=== PATIENT | female | born 1950 | race Caucasian/White ===

== ENCOUNTER 2017-09-24 16:00 | Inpatient (IN) | payer MEDICARE ==
[2017-10-02] MEDS ORDERED: Vancomycin HCl 1.5 GM in Sodium Chloride 0.9% 250 ML 300 ML IVPB ONE (07:45)
[2017-10-02] MEDS ORDERED: Midazolam HCl 2 mg/2 ml Vial ONE (07:50)
[2017-10-02] MEDS ORDERED: Ropivacaine 0.5% HCl/PF (150 MG/30 ML VIAL) ONE (07:50)
[2017-10-02] MEDS ORDERED: Fentanyl 100 MCG/2 ML VIAL ONE (07:50)
[2017-10-02] MEDS ORDERED: CEFAZOLIN/Water 2 GM/20 ML SYRINGE ONE (08:04)
[2017-10-02] MEDS ORDERED: Scopolamine 1.5 mg/72 hour Patch ONE (08:04)
[2017-10-02] MEDS ORDERED: Ondansetron HCl/PF 4 MG/2 ML Vial IVP PRN ×2 (08:55→12:10)
[2017-10-02] MEDS ORDERED: Ketorolac Tromethamine 30 MG/ML VIAL IVP PRN (08:55)
[2017-10-02] MEDS ORDERED: Ropivacaine HCl/PF 250 ML in Premix Bag 1 BAG NERVE BLCK SCH (08:55)
[2017-10-02] MEDS ORDERED: Promethazine HCl 25 MG/ML VIAL IM PRN ×2 (08:55→12:10)
[2017-10-02] MEDS ORDERED: Zolpidem Tartrate 5 MG TAB PO PRN ×2 (08:55→11:08)
[2017-10-02] MEDS ORDERED: traMADol HCl 50 MG TAB PO PRN ×2 (08:55)
[2017-10-02] MEDS ORDERED: Ondansetron ODT 4 MG TAB PO PRN (11:08)
[2017-10-02] MEDS ORDERED: HYDROcodone/Acetaminophen 7.5/325 mg Tablet PO PRN ×2 (11:08)
[2017-10-02] MEDS ORDERED: PROVENTIL INHALER 6.7 G (200 INHALATIONS) INH PRN (11:10)
[2017-10-02] MEDS ORDERED: Lactated Ringer's 1,000 ML IV SCH (11:15)
[2017-10-02] MEDS ORDERED: Promethazine HCl 25 MG/ML VIAL ONE (11:17)
[2017-10-02] MEDS ORDERED: Promethazine HCl 25 MG/ML VIAL SLOW IVP PRN (12:10)
--- NOTE | 2017-10-02 12:44 | OP ---
PREOPERATIVE DIAGNOSES: Degenerative joint disease and biceps tendonitis, right shoulder. POSTOPERATIVE DIAGNOSES: Degenerative joint disease and biceps tendonitis, right shoulder. PROCEDURE PERFORMED: Right total shoulder arthroplasty using a [employer] size [address] em with a 43 head and a small glenoid polyethylene keel. SURGEON: Andrea Lagunas M.D. CLAIMS SUPPORT SPECIALIST: Toan Billy PA-C. BLOOD LOSS: 100. SPECIMEN: None. DRAINS: None. COMPLICATIONS: None. NARRATIVE REPORT: After appropriate consent was obtained, the patient was taken to the operating brayden m where general anesthesia was induced. She was placed in a beach chair position. Right arm was pre pped and draped in the usual sterile fashion. Oblique incision was made in the deltopectoral interva l. Cephalic vein was identified and preserved. Dissection was carried down to the conjoint tendon w hich was retracted medially. The subscapularis was taken down. The biceps tendon was in poor condit ion, it was taken down off the superior glenoid tubercle and tenodesed to the pectoralis tendon. Exc ess tendon was removed. The shoulder was then easily dislocated. I opened the humerus with a T hand le and then cut a 20 mm retroversion superior cut. The subscapularis had been previously tagged. I used a subscapularis to follow this down to the anterior glenoid and a Bankart retractor was placed a nteriorly, and drill was placed posteriorly. I drilled a center hole in the glenoid and reamed with a one-step reamer. Irrigation was performed. The base plate was deployed without difficulty. Screw s were inserted in the usual technique with good compression and fixation. Glenosphere was deployed without difficulty and the screw was tightened. Attention was turned back to the humerus which was o pened with a T handle, and after using the acetabular reamer, I then also used a metaphyseal reamer. The appropriate size stem was trialed and polyethylene was trialed until the implants were determine d as above. I did drill holes through the humerus, and a cottony Dacron suture was placed around the prosthesis through bone to facilitate repair of the subscapularis. Irrigation was performed. Perma nent implants were placed. Shoulder was reduced. The subscapularis was repaired back to bone using the cottony Dacron suture. Irrigation performed again. The deltopectoral interval was tacked shut w reggie 0 Vicryl, subcutaneous tissue was closed with 2-0 Vicryl, and skin was closed with megan, and s terile dressing was applied.
[2017-10-02] MEDS ORDERED: traMADol HCl 50 MG TAB PO SCH (13:00)
[2017-10-02] MEDS ORDERED: Dexamethasone 20 MG/5 ML VIAL ONE (13:32)
[2017-10-02] MEDS ORDERED: Ondansetron HCl/PF 4 MG/2 ML Vial ONE (13:32)
[2017-10-02] MEDS ORDERED: ePHEDrine/0.9% NaCl/PF SYRINGE 50 mg/10 ml ONE (13:32)
[2017-10-02] MEDS ORDERED: Lidocaine 1% PF 5 ML VIAL ONE (13:32)
[2017-10-02] MEDS ORDERED: PHENYLEPHRINE-NS 100 MCG/ML 10 ML SYRINGE ONE (13:32)
[2017-10-02] MEDS ORDERED: Glycopyrrolate 0.2 MG/ML 5 ML SYRINGE ONE (13:32)
[2017-10-02] MEDS ORDERED: PROPOFOL 200 MG/20 ML VIAL ONE (13:32)
[2017-10-02] MEDS ORDERED: Vecuronium 10 MG VIAL ONE (13:32)
[2017-10-02] MEDS ORDERED: CEFAZOLIN/Water 2 GM/20 ML SYRINGE SLOW IVP SCH (14:00)
[2017-10-02 16:02] VITALS: BMI 35.9
[2017-10-02] MEDS: HYDROcodone/Acetaminophen 5/325 mg Tablet PO PRN (20:12)
[2017-10-02] MEDS: Lisinopril 20 MG TAB PO SCH (20:13)
[2017-10-03] MEDS: HYDROcodone/Acetaminophen 5/325 mg Tablet PO PRN ×3 (00:31→08:45)
[2017-10-03] MEDS: Lisinopril 20 MG TAB PO SCH (08:44)
[2017-10-03] MEDS ORDERED: Aspirin 81 mg Enteric Coated Tablet PO SCH (09:00)
[2017-10-03] MEDS ORDERED: Enoxaparin Sodium 30 MG/0.3 ML SYRINGE SC SCH (09:00)
[2017-10-03] MEDS ORDERED: Allopurinol 100 MG TAB PO SCH (09:00)
[2017-10-03] MEDS ORDERED: Montelukast Sodium 10 mg Tablet PO SCH (09:00)
[2017-10-03] MEDS ORDERED: Ropivacaine 0.2% 550 ML 550 ML NERVE BLCK SCH (10:32)
[2017-10-03 12:06] VITALS: BP 149/87; TEMP 98.4
[2017-10-03] MEDS ORDERED: Silver Sulfadiazine 1% Cream 50 GM TUBE TP SCH (21:00)
--- NOTE | 2017-10-06 13:30 | DIS ---
DATE OF ADMISSION: 10/02/2017 DATE OF DISCHARGE: 10/03/2017 PREOPERATIVE DIAGNOSES: Degenerative joint disease and biceps tendonitis, right shoulder. DISCHARGE DIAGNOSES: Degenerative joint disease and biceps tendonitis, right shoulder. PROCEDURE: The patient underwent a right total shoulder arthroplasty using a Control4 size 4 Flex stem with a 43 head and a small glenoid polyethylene keel. HOSPITAL COURSE: Hospital stay was unremarkable. She was admitted to [place] [id number] where she worked with staff, physical therapy, and progressed quite well. By postoperative day #1, she was ready to discha [facility] home. DISCHARGE CONDITION: Good/stable. DISPOSITION: Home. FOLLOWUP: Follow up would be in 10-14 days, sooner if there are problems or concerns. DISCHARGE MEDICATIONS: Given with usage instructions. This is Toan Billy PA-C dictating for Dr. Andrea Lagunas.
== END 2017-10-03 12:56 | disposition home or self-care (01) | DRG 483 ==
LOC: SURG A 10-02 06:51 → SJJU 10-02 12:27
PROVIDERS: ADMIT Orthopaedic Surgery; ATTEND Orthopaedic Surgery
PROC: 0RRJ0JZ Replacement of Right Shoulder Joint with Synthetic Substitute, Open Approach (ICD-10-PCS; principal; 2017-10-02)
PROC: 3E0T3BZ Introduction of Anesthetic Agent into Peripheral Nerves and Plexi, Percutaneous Approach (ICD-10-PCS; 2017-10-02)
DX: M19.011 Primary osteoarthritis, right shoulder (principal); I10 Essential (primary) hypertension; M10.9 Gout, unspecified; M75.21 Bicipital tendinitis, right shoulder; Z98.84 Bariatric surgery status; Z79.818 Long term (current) use of other agents affecting estrogen receptors and estrogen levels; Z85.3 Personal history of malignant neoplasm of breast
CPT/HCPCS: A4306; C1713; G8978-GP-CL; G8979-GP-CK; G8987-GO-CJ; G8988-GO-CJ; G8989-GO-CJ; J1100; J1650; J2001; J2250; J2405; J2550; J2704; J2795; J3010; J3370; J7050

== ENCOUNTER 2017-09-24 16:15 | Outpatient (CLI) | payer MEDICARE ==
[2017-09-24 17:07] LABS: #Basophils 0.1 thou/uL (0.0-0.2); #Eosinphils 0.7 thou/uL (0.0-0.7); #Lymphocytes 2.9 thou/uL (1.20-3.40); #Monocytes 0.6 thou/uL (0.11-0.59); #Neutrophils 4.2 thou/uL (1.40-6.50); %Eosinophils 8.1 % (0.0-10.0); %Lymphocytes 34.2 % (21.0-51.0); %Monocytes 6.6 % (0.0-10.0); Hematocrit 39.3 % (36.0-47.0); Red Blood Cell (RBC) Count 4.44 mill/uL (4.20-5.40); White Blood Cell (WBC) Count 8.3 thou/uL (4.8-10.8)
[2017-09-24 17:22] LABS: Anion Gap 13 mmol/L (10-20); BUN (Urea Nitrogen) 14 mg/dL (9.8-20.1); Calc. Creatinine Clearance 0 mL/min (70-130); Calcium 10.2 mg/dL (7.8-10.44); Carbon Dioxide 25 mmol/L (23-31); Chloride 103 mmol/L (98-107); Estimated GFR-MDRD 54
--- NOTE | 2017-09-24 17:36 | RAD ---
CHEST TWO VIEWS: 09/24/17 HISTORY: Preop. Heart size is within normal limits. There are atherosclerotic changes of the aorta. The lungs are joanne ar of infiltrates. Postoperative changes of the thoracolumbar spine are noted. Left shoulder prosthes is is present. IMPRESSION: No active intrathoracic disease. POS: ADAM
--- NOTE | 2017-09-25 14:15 | EKG ---
Test Reason : Blood Pressure : / mmHG Vent. Rate : 085 BPM Atrial Rate : 085 BPM P-R Int : 148 ms QRS Dur : 074 ms QT Int : 380 ms P-R-T Axes : 025 -25 021 degrees QTc Int : 452 ms Poor data quality, interpretation may be adversely affected Normal sinus rhythm Low voltage QRS Cannot rule out Anterior infarct , age undetermined Abnormal ECG When compared with ECG of 09-AUG-2016 15:59, No significant change was found Confirmed by DR. Kiran CHANCE (3) on 09/25/2017 2:15:04 PM Referred By: YANIQUE Confirmed By:DR. Kiran CHANCE
== END 2017-09-24 16:16 | disposition home or self-care (01) ==
LOC: LABBT 16:15
PROVIDERS: ATTEND Orthopaedic Surgery
DX: Z01.818 Encounter for other preprocedural examination (principal); M19.011 Primary osteoarthritis, right shoulder
CPT/HCPCS: 71020; 80048; 85025; 93005; 93010

== ENCOUNTER 2018-07-23 06:55 | Day surgery (SDC) | payer MEDICARE ==
[2018-07-22 11:32] VITALS: BMI 33.0
[~2018-07-23 06:55] MED LIST: Prevnar 13-Val Conj/PF 0.5 ML SYRINGE IM ONE
[2018-07-23 07:53] VITALS: BP 125/97; TEMP 97.3
[2018-07-23] MEDS ORDERED: Iopamidol-M 300 61% 15 ML VIAL ONE (09:43)
--- NOTE | 2018-07-23 11:16 | RAD ---
LUMBAR AND THORACIC SPINE MYELOGRAM: 07/23/2018 HISTORY: Lumbar spondylosis and thoracic spine pain. FINDINGS: Informed consent was obtained prior to the procedure. Auto Transport Driver frontal and lateral radiographs of the t horacic spine are provided. There is postoperative hardware overlying the right upper quadrant, the right hilar region, and the left upper quadrant. There is extensive fusion hardware associated with the thoracolumbar spine, involving the T11, T12, L1, L2, L3, and L4 levels. Lateral thoracic and lumbar spine radiographs demonstrate no significant anterolisthesis or retrolist hesis. There is severe degenerative change at T10-T11, T11-T12, and T12-L1, with disk space narrowin g, degenerative endplate change, and anterior osteophyte formation. No acute fracture is seen. There are intervertebral disk devices at L3-L4, L4-L5, and L5-S1. The patient was placed on the fluoroscopic table, in the prone position, and the skin overlying the l ower lumbar spine was prepped and draped in the normal sterile fashion. The skin overlying the L3-L4 level was anesthetized with 1% buffered Lidocaine. With intermittent fluoroscopic guidance, a 22 ga uge spinal needle was advanced into the thecal sac, and removal of the stylet yielded clear cerebrosp inal fluid. Approximately 10 mL of iodinated contrast media was injected into the thecal sac, outlin ing the nerve roots of the cauda equina. The needle was removed. The patient tolerated the procedur e well. The patient's head was placed down to extend contrast media into the thoracic region as well . The patient was then transferred to the CT scanner for CT examination of the thoracic and lumbar s pine. IMPRESSION: 1. Multilevel degenerative and postoperative change of the thoracic and lumbar spine. 2. Successful thoracic and lumbar spine myelogram. CT myelogram to follow. POS: SABRINA
--- NOTE | 2018-07-23 11:36 | CT ---
CT MYELOGRAM OF THE LUMBAR SPINE: Date: 07-23-18 Comparison: None. History: Spondylosis, pain, prior surgery. Technique: Following the intrathecal administration of iodinated contrast media, serial axial CT imag ing at 2.5 mm intervals obtained through the lumbar spine. Coronal and sagittal reformatted imaging o btained. FINDINGS: There is extensive post-operative hardware which includes bilateral pedicle screws at T11, T12, L1, L 2, L3 and L4. There are associated bilateral vertically oriented interlocking rods. There is a disc d evice present at L3-4, L4-5, and L5-S1. There is mild anterolisthesis at the T10-11 level measuring approximately 3-4 mm, better assessed on the thoracic spine myelogram. The conus medullaris terminates at the L1 level. There are lucent tracks at the L5 and S1 levels suggesting hardware defects, status post removal on t he basis of removed bilateral pedicle screws. T12-L1: There is disc space narrowing and degenerative endplate change with mild disc bulge. There is bilateral facet hypertrophy as well. There is no significant central canal or neural foraminal steno sis. L1-2: Bilateral facet hypertrophy is present. There is disc space narrowing. There is mild bilateral neural foraminal stenosis. There is no significant central canal stenosis. L2-3: Mild bilateral facet hypertrophy. There is disc space narrowing and a vacuum disc present. Ther e is mild bilateral neural foraminal stenosis. No significant central canal stenosis. L3-4: Prominent bilateral facet hypertrophy, right greater than left. Mild left and moderate right ne ural foraminal stenosis. No significant central canal stenosis. L4-5: Prominent bilateral facet hypertrophy with moderate bilateral neural foraminal stenosis noted. No significant central canal stenosis. L5-S1: Bilateral facet hypertrophy with moderate left and severe right neural foraminal stenosis. No significant central canal stenosis. There is no evidence for acute fracture or dislocation. There is no worrisome lytic or blastic bone l esion noted. There is a small sliding type hiatal hernia. There is suture line associated with the st omach, incompletely imaged. There is scattered atherosclerotic calcification of the abdominal aorta and its branches. IMPRESSION: Multilevel post-operative and degenerative change within the lumbar spine as detailed above. POS: SABRINA
--- NOTE | 2018-07-23 11:57 | CT ---
CT MYELOGRAM THORACIC SPINE: 07/23/2018 HISTORY: Thoracic pain. COMPARISON: None. TECHNIQUE: Serial axial CT imaging obtained at 3.75 mm intervals, through the thoracic spine, following the intr athecal administration of contrast. Coronal and sagittal reformatted imaging obtained. FINDINGS: At the T10-T11 level, there is anterolisthesis, measuring approximately 3-4 mm. T1-T2: There is mild disk bulge in a small left paracentral disk protrusion. No significant central canal or neural foraminal stenosis. T2-T3: Mild bilateral facet hypertrophy and mild disk bulge with no significant central canal or paxton ral foraminal stenosis. T3-T4: Mild bilateral facet hypertrophy with mild bilateral neural foraminal stenosis. No significa nt central canal stenosis. T4-T5: Mild bilateral facet hypertrophy. Mild bilateral neural foraminal stenosis. No significant central canal stenosis. T5-T6: There is bilateral facet hypertrophy with mild/moderate bilateral neural foraminal stenosis. No central canal stenosis. T6-T7: Bilateral facet hypertrophy with moderate bilateral neural foraminal stenosis. No significan t central canal stenosis. T7-T8: Mild bilateral facet hypertrophy. No significant central canal or neural foraminal stenosis. T8-T9: There is a small left paracentral disk protrusion causing no significant central canal stenos is. There is facet hypertrophy on the left with mild to moderate left neural foraminal stenosis. T9-T10: There is disk space narrowing and vacuum disk formation. There is a disk protrusion in the left paracentral region, and there is posterior ligamentous hypertrophy in the left lateral recess re gion. There is associated significant left lateral recess stenosis, and there is moderate neural for aminal stenosis, left greater than right, with a mild degree of lateral central canal stenosis on the left. T10-T11: There is disk space narrowing, degenerative endplate change, and facet hypertrophic change. There is disk bulge and posterior ligamentous hypertrophy, leading to a focal area of mild/moderate central canal stenosis. There is moderate/severe bilateral neural foraminal stenosis. T11-T12: Bilateral facet hypertrophy. Disk space narrowing, disk desiccation, vacuum disk, and ante rior osteophyte formation. Facet hypertrophy leads to moderate right neural foraminal stenosis. No significant central canal or left neural foraminal stenosis. T12-L1: Bilateral facet hypertrophy. Disk space narrowing and mild disk bulge with no significant c entral canal or neural foraminal stenosis. IMPRESSION: Multilevel postoperative and degenerative change noted within the thoracic spine, as detailed above. The most significant degenerative change is present at the T10-T11 level and the T9-T10 level, as de scribed above. POS: SABRINA
== END 2018-07-23 10:10 | disposition home or self-care (01) ==
LOC: RAD 06:55
PROVIDERS: ATTEND Neurological Surgery
PROC: B01B1ZZ Fluoroscopy of Spinal Cord using Low Osmolar Contrast (ICD-10-PCS; principal; 2018-07-23)
DX: M47.816 Spondylosis without myelopathy or radiculopathy, lumbar region (principal); M51.34 Other intervertebral disc degeneration, thoracic region; M51.35 Other intervertebral disc degeneration, thoracolumbar region; M51.24 Other intervertebral disc displacement, thoracic region; M48.04 Spinal stenosis, thoracic region; M48.061 Spinal stenosis, lumbar region without neurogenic claudication; I10 Essential (primary) hypertension; J45.909 Unspecified asthma, uncomplicated; M10.9 Gout, unspecified; Z79.810 Long term (current) use of selective estrogen receptor modulators (SERMs); Z79.82 Long term (current) use of aspirin; Z79.899 Other long term (current) drug therapy; Z88.2 Allergy status to sulfonamides; Z88.8 Allergy status to other drugs, medicaments and biological substances; Z91.048 Other nonmedicinal substance allergy status; Z98.1 Arthrodesis status
CPT/HCPCS: 62305; 72129; 72132

== ENCOUNTER 2018-11-03 08:06 | Outpatient (CLI) | payer MEDICARE ==
--- NOTE | 2018-11-04 10:25 | NM ---
RADIOIODINE THYROID UPTAKE AND SCAN: Date: 11/03/18 HISTORY: Thyrotoxicosis without thyrotoxic storm. RADIOPHARMACEUTICAL: 260 microcuries Iodine-123 administered orally. FINDINGS: There is diffusely uptake in the thyroid gland. The 24 hour uptake measures 34% (10-30%). A focally i ncreased uptake is also seen in the left upper pole. IMPRESSION: 1. Increased 24 hour radioiodine uptake. 2. Graves' disease versus toxic nodule in the left upper pole. Thyroid ultrasound would be helpful. POS: SABRINA
== END 2018-11-03 08:07 | disposition home or self-care (01) ==
LOC: NM 08:06
PROVIDERS: ATTEND Internal Medicine
DX: E05.00 Thyrotoxicosis with diffuse goiter without thyrotoxic crisis or storm (principal)
CPT/HCPCS: 78014; A9516

== ENCOUNTER 2018-11-10 14:33 | Outpatient (CLI) | payer MEDICARE ==
--- NOTE | 2018-11-10 15:31 | ULT ---
THYROID ULTRASOUND: Comparison: None. History: Thyroid nodules. Technique: Multiplanar grayscale and color doppler images were obtained in a thyroid ultrasound. FINDINGS: There are mixed solid/cystic nodules in both lobes of the thyroid. The largest is seen on the left me asuring 2.6 x 2.6 x 2.0 cm in size. All of the nodules are well circumscribed and isoechoic compared to the thyroid parenchyma. These do not contain suspicious microcalcifications and are wider than calixto l. IMPRESSION: Multinodular thyroid. The thyroid nodules are all TIRADS category II lesions. Therefore, FNA is not r equired. POS: [facility]
== END 2018-11-10 14:34 | disposition home or self-care (01) ==
LOC: BICULT 14:33
PROVIDERS: ATTEND Internal Medicine
DX: E04.1 Nontoxic single thyroid nodule (principal); E04.2 Nontoxic multinodular goiter
CPT/HCPCS: 76536

== ENCOUNTER 2018-11-18 12:43 | Outpatient (CLI) | payer MEDICARE ==
--- NOTE | 2018-11-18 15:57 | NM ---
THYROID I 131 RADIOIODINE TREATMENT: Date: 11/18/18 HISTORY: Graves' disease. FINDINGS: After reviewing patient's prior procedures, discussion with the patient including the procedure, risk s, routine precautions, and alternate treatment possibilities. The patient voiced understanding. A capsule containing 14.35 mCi Iodine-131 was carefully administered PO. The patient had no difficult y with ingestion and was monitored for approximately 20 minutes after taking the pill. The patient will follow-up clinically with Dr. Lebron. IMPRESSION: Technically successful administration of Iodine-131 therapy for Graves disease. POS: ADAM
== END 2018-11-18 12:44 | disposition home or self-care (01) ==
LOC: NM 12:43
PROVIDERS: ATTEND Internal Medicine
DX: E05.00 Thyrotoxicosis with diffuse goiter without thyrotoxic crisis or storm (principal)
CPT/HCPCS: 79005; A9517 ×2

== ENCOUNTER 2018-12-22 16:25 | Outpatient (CLI) | payer MEDICARE ==
--- NOTE | 2018-12-22 17:08 | RAD ---
THORACIC SPINE FIVE VIEWS: 12/22/18 HISTORY: Back pain. COMPARISON: CT from 07/23/18. FINDINGS: Twelve thoracic type vertebrae. Operative fixation with posterior hardware at the lowest two thoracic levels and extending into the lumbar spine is again demonstrated. Compression of the T11 vertebral b anderson has increased slightly since the prior study. Minimal lucency surrounding the T11 screws. There i s 0.5 cm spondylolisthesis at the T10-11 level which does not change significantly upon flexion or ex tension. Acute kyphotic angulation at the T11 level. Irregularity of the T11 superior end plate is si milar to the recent CT. Osteophytosis throughout the vertebral bodies and facets. Cervicothoracic aundrea ction is intact. IMPRESSION: Slight interval progression of compression of the T11 vertebral body since the most recent CT exam. S pondylolisthesis at this level is stable without significant translation upon motion. Degenerative and postoperative changes, otherwise appears stable. POS: SABRINA
--- NOTE | 2018-12-22 17:21 | RAD ---
LUMBAR SPINE FOUR VIEWS: 12/22/18 HISTORY: Low back pain. COMPARISON: CT exam from 07/23/18. FINDINGS: Posterior operative fixation of the thoracolumbar spine is again demonstrated with pedicle screws as low as the L4 level. Metallic markers associated with interbody fusion material at the lowest three l evels remain in place with the L3-4 markers extending to the posterior confines of the disc space. Pr ominent rightward convexed rotatory scoliotic curvature on the frontal view. Prominent osteophytosis of the lowest facets. No abnormal translational motion upon flexion or extension. IMPRESSION: Extensive postoperative and degenerative changes of the lumbar spine appears stable compared to the m ost recent CT exam. POS: ADAM
== END 2018-12-22 16:26 | disposition home or self-care (01) ==
LOC: BICRAD 16:25
PROVIDERS: ATTEND Anesthesiology Pain Medicine
DX: M54.6 Pain in thoracic spine (principal); M47.816 Spondylosis without myelopathy or radiculopathy, lumbar region; M43.14 Spondylolisthesis, thoracic region; M47.814 Spondylosis without myelopathy or radiculopathy, thoracic region; Z98.890 Other specified postprocedural states
CPT/HCPCS: 72070; 72120

== ENCOUNTER 2019-05-20 08:18 | Outpatient (CLI) | payer MEDICARE ==
[2019-05-20 10:00] LABS: #Basophils 0.1 thou/uL (0.0-0.2); #Eosinphils 0.7 thou/uL (0.0-0.7); #Lymphocytes 2.7 thou/uL (1.20-3.40); #Monocytes 0.8 thou/uL (0.11-0.59); #Neutrophils 4.4 thou/uL (1.40-6.50); %Basophils 1.1 % (0.0-1.0); %Eosinophils 8.2 % (0.0-10.0); %Lymphocytes 30.9 % (21.0-51.0); %Monocytes 9.6 % (0.0-10.0); %Neutrophils 50.2 % (42.0-75.0); Mean Corpuscular HGB CONC 33.1 g/dL (32.0-36.0); Mean Corpuscular Hemoglobin 29.3 pg (27.0-31.0); Mean Corpuscular Volume 88.7 fL (78.0-98.0); Mean Platelet Volume 6.9 fL (7.4-10.4); Platelet Count 326 thou/uL (130-400); Red Blood Cell (RBC) Count 4.42 mill/uL (4.20-5.40); White Blood Cell (WBC) Count 8.7 thou/uL (4.8-10.8)
[2019-05-20 10:04] LABS: INR-International Normal Ratio 0.9; Prothrombin Time 12.6 SEC (12.0-14.7)
[2019-05-20 10:06] LABS: Bacteria/HPF None Seen HPF (None Seen); Bilirubin Negative (Negative); Blood, Urine Negative (Negative); Clarity Clear (Clear); Glucose, Urine (Dipstick) Normal (Negative); Leukocyte Negative Leu/uL (Negative); Nitrite Negative (Negative); Protein, Urine (Dipstick) Negative (Neg-Trace); RBC/HPF 0-3 HPF (0-3); Squamous Epithelial 0-3 HPF (0-3); Urobilinogen Normal mg/dL (Less than 2); WBC/HPF 0-3 HPF (0-3)
[2019-05-20 10:38] LABS: Anion Gap 12 mmol/L (10-20); BUN (Urea Nitrogen) 24 mg/dL (9.8-20.1); Calc. Creatinine Clearance 0 mL/min (70-130); Calcium 9.4 mg/dL (7.8-10.44); Carbon Dioxide 23 mmol/L (23-31); Chloride 102 mmol/L (98-107); Estimated GFR-MDRD 45; Glucose 71 mg/dL (80-115); Potassium 4.3 mmol/L (3.5-5.1); Sodium 133 mmol/L (136-145)
== END 2019-05-20 08:19 | disposition home or self-care (01) ==
LOC: LABBT 08:18 → EDSTATUS 08:30
PROVIDERS: ATTEND Orthopaedic Surgery
DX: Z01.818 Encounter for other preprocedural examination (principal); M17.11 Unilateral primary osteoarthritis, right knee
CPT/HCPCS: 80048; 81001; 85025; 85610; 87081; 87086; 93005; 93010

== ENCOUNTER 2019-05-24 06:55 | Day surgery (SDC) | payer MEDICARE ==
--- NOTE | 2019-05-19 15:42 | HP ---
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 She has had progressive degenerative arthritis and has become more symptomatic despite rest, restriction of activities, and anti-inflammatory medications, and previous cortisone injections. Pain is now interfering with day-to-day activities of walking, getting dressed, and sleeping. PAST HISTORY: Please see the old chart. The patient has had previous left total knee replacement seven years ago with good results. She has had bilateral total shoulder replacements, gastric bypass surgery, hysterectomy, and breast reconstruction following mastectomy for carcinoma without recurrence. She was recently diagnosed with Graves disease. CURRENT MEDICATIONS: Include: 1. Naproxen. 2. Lisinopril. 3. Singulair. 4. Tramadol. 5. Cardizem. 6. Protonix. 7. Low-dose aspirin. 8. Levothyroxine. 9. P.r.n. hydrocodone. ALLERGIES: SHE IS ALLERGIC TO TAPE WHICH CAUSES BLISTERS. SHE IS ALLERGIC TO DREA-DUR WHICH CAUSES VOMITING. SHE IS ALLERGIC TO BETADINE, WHICH CAUSES BLISTERS. SHE IS ALLERGIC TO LYRICA WHICH CAUSED WEIGHT GAIN AND DEPRESSION. SHE IS ALSO ALLERGIC TO SULFA, WHICH CAUSES HIVES AND NEOSPORIN WHICH CAUSES BLISTERS. PHYSICAL EXAMINATION: GENERAL: Reveals a healthy female. HEENT: Unremarkable. NECK: Supple. CHEST: Clear. HEART: Regular rate and rhythm. ABDOMEN: Soft, nontender. PELVIC: Deferred. RECTAL: Deferred. BREAST: Deferred. EXTREMITIES: Pertinent findings related to the right knee. There is 1+ effusion. There is no warmth or erythema. There is normal alignment. There is medial and lateral joint tenderness. Range of motion is 0 to 120 degrees. There is crepitus on range of motion. There is no instability. NEUROVASCULAR: Intact. Palpable distal pulses 1+. There is no pain with range of motion of the right hip. DIAGNOSTIC STUDIES: X-rays of the right hip reveal tricompartmental degenerative arthritis, most marked in patellofemoral joint with progression from previous x-rays. IMPRESSION: 1. Degenerative arthritis, right knee. 2. Status post left total knee replacement. 3. Status post bilateral total shoulder replacements. 4. History of breast cancer. 5. History of hypertension. 6. History of Graves disease. PLAN: Right total knee replacement. The nature of surgery, length of recovery, and potential complications such as infection, loss of motion, incomplete relief, delayed wound healing, neurovascular injury, thromboembolic phenomena, possible transfusion, need for revision have been discussed in detail. Job ID: [id number]
[2019-05-20 08:33] VITALS: BMI 34.0
[2019-05-24] MEDS ORDERED: Sodium Chloride 0.9% 100 ML ONE (07:28)
[2019-05-24] MEDS ORDERED: Tranexamic Acid 1,000 MG/10 ML VIAL ONE ×2 (07:28→11:39)
[2019-05-24] MEDS ORDERED: Vancomycin HCl 1.5 GM in Sodium Chloride 0.9% 250 ML 300 ML IVPB SCH ×2 (07:45→20:00)
[2019-05-24] MEDS ORDERED: Midazolam HCl 2 mg/2 ml Vial ONE (08:10)
[2019-05-24] MEDS ORDERED: Fentanyl 100 MCG/2 ML VIAL ONE ×4 (08:10→11:56)
[2019-05-24] MEDS ORDERED: Scopolamine 1.5 mg/72 hour Patch ONE (08:36)
[2019-05-24] MEDS ORDERED: Ropivacaine HCl/PF 250 ML in Premix Bag 1 BAG NERVE BLCK SCH (08:46)
[2019-05-24] MEDS ORDERED: Zolpidem Tartrate 5 MG TAB PO PRN ×2 (08:46→13:51)
[2019-05-24] MEDS ORDERED: traMADol HCl 50 MG TAB PO PRN ×3 (08:46→13:51)
[2019-05-24] MEDS ORDERED: Ondansetron PF 4 MG/2 ML Vial IVP PRN ×2 (08:46→13:51)
[2019-05-24] MEDS ORDERED: Promethazine HCl 25 MG/ML VIAL IM PRN ×2 (08:46→14:16)
[2019-05-24] MEDS ORDERED: Fentanyl 100 MCG/2 ML VIAL IV PRN (08:46)
[2019-05-24] MEDS ORDERED: HYDROcodone/Acetaminophen 5/325 mg Tablet PO PRN (08:46)
[2019-05-24] MEDS ORDERED: Bupivacaine/Epinephrine 0.25% 30 ML VIAL ONE (09:08)
[2019-05-24] MEDS ORDERED: Tranexamic Acid 1,000 MG in Sodium Chloride 0.9% 100 ML IVPB SCH ×2 (11:30→13:51)
[2019-05-24] MEDS ORDERED: HYDROmorphone 2 MG/ML VIAL ONE (11:38)
[2019-05-24] MEDS ORDERED: HYDROmorphone 0.5 MG/0.5 ML SYRINGE ONE (11:57)
--- NOTE | 2019-05-24 12:21 | RAD ---
RIGHT KNEE 2 VIEWS: Date: 05/24/19 HISTORY: Recent total knee postoperative change. FINDINGS/IMPRESSION: Recent total knee arthroplasty changes without periprosthetic fracture or dislocation. POS: OFF
[2019-05-24] MEDS ORDERED: Ropivacaine 0.2% HCl/PF (40 MG/20 ML VIAL) ONE (13:42)
[2019-05-24] MEDS ORDERED: Ropivacaine 0.5% HCl/PF (150 MG/30 ML VIAL) ONE (13:42)
[2019-05-24] MEDS ORDERED: Promethazine HCl 25 MG/ML VIAL SLOW IVP PRN ×2 (13:51→14:16)
[2019-05-24] MEDS ORDERED: Fentanyl 100 MCG/2 ML VIAL SLOW IVP PRN (13:51)
[2019-05-24] MEDS ORDERED: diphenhydrAMINE 25 MG CAP PO PRN (13:51)
[2019-05-24] MEDS ORDERED: Acetaminophen 325 MG TAB PO PRN (13:51)
[2019-05-24] MEDS ORDERED: HYDROcodone/Acetaminophen 10/325 mg Tablet PO PRN (13:51)
[2019-05-24] MEDS ORDERED: PROVENTIL INHALER 6.7 G (200 INHALATIONS) INH PRN (13:51)
[2019-05-24] MEDS: HYDROcodone/Acetaminophen 5/325 mg Tablet PO PRN ×2 (14:07→18:37)
[2019-05-24] MEDS ORDERED: Dexamethasone 20 MG/5 ML VIAL ONE (14:09)
[2019-05-24] MEDS: Ketorolac Tromethamine 30 MG/ML VIAL IVP PRN (14:09)
[2019-05-24] MEDS ORDERED: Ondansetron PF 4 MG/2 ML Vial ONE (14:09)
[2019-05-24] MEDS ORDERED: Metoclopramide HCl 10 MG/2 ML VIAL ONE (14:09)
[2019-05-24] MEDS ORDERED: ePHEDrine 50 MG/ML VIAL ONE (14:09)
[2019-05-24] MEDS ORDERED: PROPOFOL 200 MG/20 ML VIAL ONE (14:09)
[2019-05-24] MEDS ORDERED: Lidocaine 1% PF 5 ML VIAL ONE (14:09)
[2019-05-24] MEDS ORDERED: PHENYLEPHRINE-NS 100 MCG/ML 10 ML SYRINGE ONE (14:09)
[2019-05-24] MEDS ORDERED: Ondansetron HCl/PF 4 MG/2 ML Vial IVP PRN (14:16)
--- NOTE | 2019-05-24 14:37 | PDOC.HOSPP ---
- Subjective Encounter Date: 05/24/19 Encounter Time: 14:20 Subjective: no wheezing or sob right leg is tingling a bit, still mostly numb no pain - Objective Vital Signs & Weight: Weight Weight 180 lb ROS - Medication Medications: Active Medications Generic Name Dose Route Start Last Admin Trade Name Freq PRN Reason Stop Dose Admin Hydrocodone Bitart/Acetaminophen 2 tab 05/24/19 08:46 05/24/19 14:07 [place] 5/325 PO 2 tab Q4H PRN Administration For Moderate Pain 4-6 Ketorolac Tromethamine 15 mg 05/24/19 08:46 05/24/19 14:09 Toradol IVP 05/27/19 08:47 15 mg Q6H PRN Administration Moderate Pain (4-6) - Exam NAD, awake alert Eye: PERRL, anicteric sclera ENT: no oropharyngeal lesions, moist mucosa Neck: supple, no JVD Heart: RRR, no murmur Respiratory: no wheezes, no rales Gastrointestinal: soft, non-tender, normal bowel sounds Extremities: no cyanosis, no clubbing Neurological: CN's grossly intact, no focal deficits Psychiatric: normal affect, A&O x 3 Hosp A/P (1) Status post total knee replacement, right Code(s): Z96.651 - PRESENCE OF RIGHT ARTIFICIAL KNEE JOINT Status: Acute (2) HTN (hypertension) Code(s): I10 - ESSENTIAL (PRIMARY) HYPERTENSION Status: Chronic Qualifiers: Hypertension type: essential hypertension Qualified Code(s): I10 - Essential (primary) hypertension (3) GERD (gastroesophageal reflux disease) Code(s): K21.9 - GASTRO-ESOPHAGEAL REFLUX DISEASE WITHOUT ESOPHAGITIS Status: Chronic Qualifiers: Esophagitis presence: esophagitis presence not specified Qualified Code(s) : K21.9 - Gastro-esophageal reflux disease without esophagitis (4) Hypothyroidism Code(s): E03.9 - HYPOTHYROIDISM, UNSPECIFIED Status: Chronic Qualifiers: Hypothyroidism type: acquired Qualified Code(s): E03.9 - Hypothyroidism, unspecified (5) Gout Code(s): M10.9 - GOUT, UNSPECIFIED Status: Chronic Qualifiers: Gout site: unspecified site (6) H/O malignant neoplasm of breast Code(s): Z85.3 - PERSONAL HISTORY OF MALIGNANT NEOPLASM OF BREAST Status: Resolved (7) Obesity (BMI 30.0-34.9) Code(s): E66.9 - OBESITY, UNSPECIFIED Status: Chronic - Plan continue asp bid for dvt prophylaxis reduce lisinopril to 5mg bid, will escalate the dose as needed continue singulair, evista, cardizem CD 120mg daily (for suspected tachy arrhythmias, no afib per pt), protonix hemostable will f/u i.spirometry, alb nebs q8h
--- NOTE | 2019-05-24 16:26 | OP ---
DATE OF PROCEDURE: 05/24/2019 COPY READER: Shena Richardson PA-C ANESTHESIA: General plus adductor canal and sciatic nerve blocks. PREOPERATIVE DIAGNOSIS: Degenerative arthritis, right knee. POSTOPERATIVE DIAGNOSIS: Degenerative arthritis, right knee. PROCEDURE PERFORMED: Right total knee replacement with computer-assisted navigation with cemented [employer] components (#3 femoral component, #3 primary tibial baseplate with 9 mm CS plastic insert, and all-plastic A29 patellar component). DESCRIPTION OF PROCEDURE: After satisfactory anesthesia was induced in supine position, sequential compression device was placed on the nonoperative leg throughout the procedure. The right leg was then prepped and draped in routine sterile fashion. The right leg was elevated and exsanguinated with an Esmarch bandage and tourniquet inflated to 300 mmHg. A gently curved medial parapatellar incision was made, carried down through subcutaneous tissues and bleeding points were controlled with Bovie cautery. Medial parapatellar arthrotomy was performed. The patella was dislocated laterally and portions of the fat pad were excised for exposure. There was marked tricompartmental degenerative arthritis of the knee especially of the patellofemoral joint. The osteophytes and meniscal remnants were removed. Using the appropriate guides and the [employer] pinless navigation system, the distal femoral and proximal tibial articular surfaces were excised with oscillating saw to accept the trial components. It was felt #3 femoral component and #3 primary tibial base plate with 9 mm CS plastic insert gave appropriate size, fit, and stability. The patellar articular surface was excised to accept an all-plastic A29 patellar component. There was good range of motion and good patellar tracking. The trial components were removed. The knee was copiously irrigated with pulsatile lavage and the bony surfaces were thoroughly cleaned and dried. The permanent components were then cemented in a single stage using one package of cement premixed with 1 g of tobramycin powder. Excess cement was removed. There was again good fit and stability of the components. The knee was again copiously irrigated. The medial retinaculum and quadriceps mechanism was closed with interrupted #2 Vicryl and a running #2 Quill. The skin was infiltrated with 30 mL of 0.25% Marcaine with epinephrine. Subcutaneous tissues were closed with a running 0 Quill suture and the skin closed with running subcuticular 3-0 Monoderm and SurgiSeal skin adhesive. A sterile bulky compressive dressing was applied and the tourniquet deflated after 68 minutes. The foot promptly pinked up. A sequential compression device was placed on the operative leg and she was awakened, taken to the recovery room in stable condition. There were no apparent intraoperative complications. The estimated blood loss was less than 100 mL. Job ID: [id number]
[2019-05-24] MEDS: CEFAZOLIN 2 GM in Premix Bag 1 BAG IVPB SCH ×2 (16:27→18:23)
[2019-05-24] MEDS: Albuterol Sulfate 1.25 MG/3 ML NEB NEB SCH ×2 (16:28→23:11)
[2019-05-24] MEDS: Sodium Chloride 0.9% 1,000 ML IV SCH (18:31)
[2019-05-24] MEDS: Allopurinol 100 MG TAB PO SCH (20:11)
[2019-05-24] MEDS: Senokot S 8.6-50 MG TAB PO SCH (20:14)
[2019-05-24] MEDS: Lisinopril 5 MG TAB PO SCH (20:14)
[2019-05-24] MEDS: Aspirin 81 mg Enteric Coated Tablet PO SCH (20:23)
[2019-05-24] MEDS: Fluticasone Propionate Nasal Spray 16 gm Bottle NASAL SCH (20:30)
[2019-05-24] MEDS ORDERED: Lisinopril 20 MG TAB PO SCH (21:00)
[2019-05-24] MEDS ORDERED: CEFAZOLIN 2 GM in Premix Bag 1 BAG IVPB SCH (23:59)
[2019-05-25] MEDS: Sodium Chloride 0.9% 1,000 ML IV SCH ×3 (01:21→20:37)
[2019-05-25] MEDS: Levothyroxine Sodium 75 MCG TAB PO SCH (04:11)
[2019-05-25] MEDS: HYDROcodone/Acetaminophen 10/325 mg Tablet PO PRN ×3 (04:11→19:41)
[2019-05-25 05:04] LABS: Hemoglobin 10.7 g/dL (12.0-16.0); Mean Corpuscular HGB CONC 32.5 g/dL (32.0-36.0); Mean Corpuscular Hemoglobin 29.3 pg (27.0-31.0); Mean Platelet Volume 6.8 fL (7.4-10.4); Platelet Count 267 thou/uL (130-400); RBC Distribution Width 12.7 % (11.5-14.5); Red Blood Cell (RBC) Count 3.64 mill/uL (4.20-5.40); White Blood Cell (WBC) Count 14.8 thou/uL (4.8-10.8)
[2019-05-25] MEDS: Fentanyl 100 MCG/2 ML VIAL SLOW IVP PRN ×2 (06:42→20:41)
[2019-05-25] MEDS: Albuterol Sulfate 1.25 MG/3 ML NEB NEB SCH ×3 (07:33→21:41)
[2019-05-25] MEDS: Montelukast Sodium 10 mg Tablet PO SCH (08:18)
[2019-05-25] MEDS: Aspirin 81 mg Enteric Coated Tablet PO SCH ×2 (08:18→20:07)
[2019-05-25] MEDS: Lisinopril 5 MG TAB PO SCH ×2 (08:20→20:08)
[2019-05-25] MEDS: Senokot S 8.6-50 MG TAB PO SCH ×2 (08:20→20:07)
[2019-05-25] MEDS: Multivitamin W/ Minerals 1 TAB PO SCH (08:21)
[2019-05-25] MEDS: Ketorolac Tromethamine 30 MG/ML VIAL IVP PRN ×2 (08:36→19:42)
[2019-05-25] MEDS: Fluticasone Propionate Nasal Spray 16 gm Bottle NASAL SCH ×2 (10:20→19:48)
--- NOTE | 2019-05-25 14:30 | PRG ---
DATE OF SERVICE: 05/25/2019 SUBJECTIVE: Adriana is a 68-year-old female postop day 1 from a right total knee arthroplasty by Dr. Kaufman. She is doing fairly well. She has no complaints of pain, has been very well controlled. She ambulated approximately 300 feet. OBJECTIVE: VITAL SIGNS: Temperature 98.6, pulse 78, respiratory rate 16, and blood pressure is 126/71. GENERAL: She is alert and oriented to person, place, time, and situation. EXTREMITIES: No strikethrough was noted at the knee, no malrotation or deformity, and she is neurovascularly intact in the right lower extremity. IMPRESSION: 1. A 68-year-old female postop day 1 right total knee arthroplasty. 2. Asymptomatic anemia. PLAN: Continue current care. Probable discharge tomorrow to home. Job ID: [id number]
[2019-05-25] MEDS: Allopurinol 100 MG TAB PO SCH (20:07)
--- NOTE | 2019-05-25 23:41 | PDOC.HOSPP ---
- Subjective Subjective: Doing well. No complaints. No significant pain. - Objective Vital Signs & Weight: Vital Signs (12 hours) Temp Pulse Resp BP BP Pulse Ox 05/25/19 22:24 96 05/25/19 21:41 83 12 96 05/25/19 20:08 83 151/83 H 05/25/19 20:03 99.5 F 84 16 151/83 H 97 05/25/19 16:15 98.4 F 71 16 136/68 98 05/25/19 14:30 86 16 97 05/25/19 12:23 98.6 F 79 16 126/71 94 L Weight Admit Weight 180 lb Weight 180 lb I&O: 05/24/19 05/25/19 05/26/19 06:59 06:59 06:59 Intake Total 2255 1120 Output Total 1550 Balance 705 1120 Result Diagrams: 05/25/19 04:31 Hospitalist ROS - Medication Medications: Active Medications Generic Name Dose Route Start Last Admin Trade Name Freq PRN Reason Stop Dose Admin Hydrocodone Bitart/Acetaminophen 2 tab 05/24/19 08:46 05/24/19 18:37 [place] 5/325 PO 2 tab Q4H PRN Administration For Moderate Pain 4-6 Hydrocodone Bitart/Acetaminophen 1 tab 05/24/19 13:51 05/25/19 08:35 [place] 10/325 PO 1 tab Q4H PRN Administration Moderate Pain (4-6) Hydrocodone Bitart/Acetaminophen 2 tab 05/24/19 13:51 05/25/19 19:41 [place] 10/325 PO 2 tab Q4H PRN Administration Severe Pain (7-10) Albuterol Sulfate 1.25 mg 05/24/19 15:00 05/25/19 21:41 Albuterol Sulfate NEB 1.25 mg [id number] ROWAN Administration Allopurinol 100 mg 05/24/19 21:00 05/25/19 20:07 Zyloprim PO 100 mg HS ROWAN Administration Aspirin 81 mg 05/24/19 21:00 05/25/19 20:07 Ecotrin PO 81 mg BID ROWAN Administration Diltiazem HCl 120 mg 05/24/19 21:00 05/25/19 20:08 Cardizem Cd PO 120 mg HS ROWAN Administration Fentanyl 50 mcg 05/24/19 08:46 05/25/19 17:56 Sublimaze IV 50 mcg Q1H PRN Administration BREAKTHRU PAIN Fentanyl 100 mcg 05/24/19 13:51 05/25/19 20:41 Sublimaze SLOW IVP 100 mcg Q1H PRN Administration Severe Pain (7-10) Fluticasone Propionate 0 gm 05/24/19 21:00 05/25/19 19:48 Flonase Nasal [place] NASAL 2 sprays BID ROWAN Administration Ropivacaine 250 ml/ Device 250 mls @ 10 mls/hr 05/24/19 08:46 05/25/19 13:26 NERVE BLCK 250 mls INF ROWAN Administration Sodium Chloride 1,000 mls @ 100 mls/hr 05/24/19 13:51 05/25/19 20:37 Normal Saline 0.9% IV Not Given .Q10H ROWAN Iron/Minerals/Multivitamins 1 tab 05/25/19 09:00 05/25/19 08:21 Theragran M PO 1 tab DAILY ROWAN Administration Ketorolac Tromethamine 15 mg 05/24/19 08:46 05/25/19 19:42 Toradol IVP 05/27/19 08:47 15 mg Q6H PRN Administration Moderate Pain (4-6) Levothyroxine Sodium 75 mcg 05/25/19 06:00 05/25/19 04:11 Synthroid PO 75 mcg 0600 ROWAN Administration Montelukast Sodium 10 mg 05/25/19 09:00 05/25/19 08:18 Singulair PO 10 mg QAM ROWAN Administration Pantoprazole Sodium 40 mg 05/24/19 21:00 05/25/19 20:08 Protonix PO 40 mg BID ROWAN Administration Raloxifene HCl 60 mg 05/25/19 09:00 05/25/19 08:19 Evista PO 60 mg QAM ROWAN Administration Senna/Docusate Sodium 2 tab 05/24/19 21:00 05/25/19 20:07 Senokot S PO 2 tab BID ROWAN Administration Sodium Chloride 10 ml 05/24/19 13:51 05/25/19 08:37 Flush - Normal Saline IVF 10 ml PRN PRN Administration Saline Flush - Exam General Appearance: NAD, awake alert Heart: RRR, no murmur, no gallops, no rubs, normal peripheral pulses Respiratory: CTAB, no wheezes, no rales, no ronchi, normal chest expansion, no tachypnea, normal percussion Gastrointestinal: soft, non-tender, non-distended, normal bowel sounds, no palpable masses, no hepatomegaly, no splenomegaly, no bruit Extremities: no cyanosis, no clubbing, no edema Extremeties - other findings: Post op dressing RLE Skin: normal turgor Neurological: CN's grossly intact Musculoskeletal: normal tone Psychiatric: normal affect, normal behavior, A&O x 3 Hosp A/P (1) Status post total knee replacement, right Code(s): Z96.651 - PRESENCE OF RIGHT ARTIFICIAL KNEE JOINT Status: Acute (2) GERD (gastroesophageal reflux disease) Code(s): K21.9 - GASTRO-ESOPHAGEAL REFLUX DISEASE WITHOUT ESOPHAGITIS Status: Chronic Qualifiers: Esophagitis presence: esophagitis presence not specified Qualified Code(s) : K21.9 - Gastro-esophageal reflux disease without esophagitis (3) Gout Code(s): M10.9 - GOUT, UNSPECIFIED Status: Chronic Qualifiers: Gout site: unspecified site (4) HTN (hypertension) Code(s): I10 - ESSENTIAL (PRIMARY) HYPERTENSION Status: Chronic Qualifiers: Hypertension type: essential hypertension Qualified Code(s): I10 - Essential (primary) hypertension (5) Hypothyroidism Code(s): E03.9 - HYPOTHYROIDISM, UNSPECIFIED Status: Chronic Qualifiers: Hypothyroidism type: acquired Qualified Code(s): E03.9 - Hypothyroidism, unspecified (6) Obesity (BMI 30.0-34.9) Code(s): E66.9 - OBESITY, UNSPECIFIED Status: Chronic (7) H/O malignant neoplasm of breast Code(s): Z85.3 - PERSONAL HISTORY OF MALIGNANT NEOPLASM OF BREAST Status: Resolved - Plan Post op care per ortho. Increase the ACEI to 10 mg bid. Continue to titrate upward to home dose as tolerated.
[2019-05-26] MEDS: HYDROcodone/Acetaminophen 10/325 mg Tablet PO PRN ×3 (03:58→12:10)
[2019-05-26] MEDS: Ketorolac Tromethamine 30 MG/ML VIAL IVP PRN ×2 (04:49→12:12)
[2019-05-26] MEDS: Levothyroxine Sodium 75 MCG TAB PO SCH (04:57)
[2019-05-26] MEDS: Albuterol Sulfate 1.25 MG/3 ML NEB NEB SCH (07:33)
[2019-05-26] MEDS: Montelukast Sodium 10 mg Tablet PO SCH (08:21)
[2019-05-26] MEDS: Aspirin 81 mg Enteric Coated Tablet PO SCH (08:21)
[2019-05-26] MEDS: Senokot S 8.6-50 MG TAB PO SCH (08:21)
[2019-05-26] MEDS: Sodium Chloride 0.9% 1,000 ML IV SCH (08:21)
[2019-05-26] MEDS: Fluticasone Propionate Nasal Spray 16 gm Bottle NASAL SCH (08:22)
[2019-05-26] MEDS: Multivitamin W/ Minerals 1 TAB PO SCH (08:22)
[2019-05-26] MEDS ORDERED: Lisinopril 10 MG TAB PO SCH (09:00)
[2019-05-26 11:50] VITALS: BP 149/82; TEMP 98.8
--- NOTE | 2019-05-27 12:55 | DIS ---
DATE OF ADMISSION: 05/24/2019 DATE OF DISCHARGE: 05/26/2019 This is Shena Richardson PA-C dictating a report for Ashok Kaufman MD. CONSULTANTS: Include [facility] well [facility]. PREOPERATIVE DIAGNOSIS: Degenerative arthritis, right knee. POSTOPERATIVE DIAGNOSIS: Degenerative arthritis, right knee. PROCEDURE PERFORMED: Right total knee replacement with computer-assisted navigation. BRIEF HOSPITAL COURSE: This is a 68-year-old female, who was indicated for the above-mentioned procedure. She failed nonoperative management. Postoperatively, she was admitted to [place] [address] [facility], where she worked with physical and occupational therapist and underwent Joint-U protocol. She was also seen by [facility] for postoperative pain management. She completed postoperative IV antibiotics. Her hospital course was uncomplicated. On postoperative day #2, she was discharged home with home health physical therapy. DISCHARGE CONDITION: Stable. DISCHARGE DISPOSITION: Home. DISCHARGE INSTRUCTIONS: The patient will follow up with Dr. Kaufman as scheduled. She will keep her surgical site clean, dry, and intact until followup. She will work with home health physical therapy. DISCHARGE MEDICATIONS: See MAR. Job ID: [id number]
== END 2019-05-26 13:15 | disposition home or self-care (01) ==
LOC: SDC 06:55 → SJJU 13:51 → SDC 05-26 13:15
PROVIDERS: ATTEND Orthopaedic Surgery
PROC: 0SRC0JZ Replacement of Right Knee Joint with Synthetic Substitute, Open Approach (ICD-10-PCS; principal; 2019-05-24)
DX: M17.11 Unilateral primary osteoarthritis, right knee (principal); I10 Essential (primary) hypertension; D64.9 Anemia, unspecified; Z79.1 Long term (current) use of non-steroidal anti-inflammatories (NSAID); Z79.82 Long term (current) use of aspirin; Z79.899 Other long term (current) drug therapy; Z88.1 Allergy status to other antibiotic agents; Z88.2 Allergy status to sulfonamides; Z88.8 Allergy status to other drugs, medicaments and biological substances; Z91.048 Other nonmedicinal substance allergy status; Z91.030 Bee allergy status; Z91.041 Radiographic dye allergy status
CPT/HCPCS: 27447; 73560; 85027; 94640 ×3; 97116 ×3; 97139; 97150 ×2; 97530 ×2; 98961; C1713; C1776; 36415; J0690; J1100; J1170; J1885; J2001; J2250; J2405; J2704; J2765; J2795; J3010; J3370; J3490; J7050

== ENCOUNTER 2021-12-14 10:37 | Outpatient (CLI) | payer MEDICARE ==
[2021-12-14 12:04] LABS: INR-International Normal Ratio 0.9; Prothrombin Time 10.4 sec (9.5-12.1)
[2021-12-14 12:10] LABS: Anion Gap 15 mmol/L (10-20); BUN (Urea Nitrogen) 23 mg/dL (9.8-20.1); Calc. Creatinine Clearance 0 mL/min (70-130); Calcium 10.3 mg/dL (7.8-10.44); Carbon Dioxide 23 mmol/L (23-31); Chloride 108 mmol/L (98-107); Glucose 84 mg/dL (80-115); Potassium 4.5 mmol/L (3.5-5.1); Sodium 141 mmol/L (136-145)
[2021-12-14 12:23] LABS: #Basophils 0.1 10x3/uL (0.0-0.2); #Eosinphils 0.3 10x3/uL (0.0-0.5); #Monocytes 0.5 10x3/uL (0.0-1.1); #Neutrophils 5.3 10x3/uL (1.5-8.4); %Basophils 0.8 % (0.0-2.0); %Eosinophils 4.1 % (0.0-6.0); %Lymphocytes 22.6 % (18.0-47.0); %Monocytes 5.6 % (0.0-10.0); %Neutrophils 66.3 % (40.0-75.0); Hemoglobin 11.6 g/dL (12.0-15.5); Mean Corpuscular HGB CONC 31.8 g/dL (32.0-36.0); Mean Corpuscular Volume 91.3 fl (81.6-98.3); Mean Platelet Volume 8.9 fl (7.4-10.4); Platelet Count 312 10x3/uL (150-450); RBC Distribution Width 17.5 % (11.5-14.5)
[2021-12-14 23:47] LABS: SARS-CoV-2 PCR by NAA Not Detected (NotDetected)
== END 2021-12-14 10:38 | disposition home or self-care (01) ==
LOC: LABBT 10:37
PROVIDERS: ATTEND Orthopaedic Surgery
DX: Z01.818 Encounter for other preprocedural examination (principal); M16.11 Unilateral primary osteoarthritis, right hip; Z20.822 Contact with and (suspected) exposure to COVID-19
CPT/HCPCS: 80048; 85025; 85610; 87081; 93005; U0003; U0005; 93010

== ENCOUNTER 2021-12-17 05:38 | Inpatient (IN) | payer MEDICARE ==
[2021-12-11 16:15] VITALS: BMI 35.9
[2021-12-17] MEDS ORDERED: Sodium Chloride 0.9% 100 ML ONE (06:08)
[2021-12-17] MEDS ORDERED: Tranexamic Acid 1,000 MG/10 ML VIAL ONE (06:08)
[2021-12-17] MEDS ORDERED: Vancomycin 1.5 GRAM/300 ML BAG 1.5 GM in Premix Bag 1 BAG IVPB SCH (06:15)
[2021-12-17] MEDS ORDERED: Phenylephrine 10 MG/ML VIAL ONE (06:20)
[2021-12-17] MEDS ORDERED: Propofol 500 MG/50 ML VIAL ONE (06:20)
[2021-12-17] MEDS ORDERED: Bupivacaine PF 0.5% 30 ML VIAL ONE (06:26)
[2021-12-17] MEDS ORDERED: Fentanyl 100 MCG/2 ML VIAL ONE (06:30)
[2021-12-17] MEDS ORDERED: Midazolam HCl 2 mg/2 ml Vial ONE ×2 (06:30→08:00)
[2021-12-17] MEDS ORDERED: Lidocaine 1% (PF) 30 ML VIAL ONE (06:30)
[2021-12-17] MEDS ORDERED: Bupivacaine HCl 0.5%/Epinephrine 1:200,000/PF 30 ml Vial ONE (06:50)
[2021-12-17] MEDS ORDERED: ceFAZolin 2 GM/Dextrose 50 ML IVPB ONE (06:51)
[2021-12-17] MEDS ORDERED: Zolpidem Tartrate 5 MG TAB PO PRN (06:54)
[2021-12-17] MEDS ORDERED: Promethazine HCl 25 MG/ML VIAL IM PRN ×2 (06:54→09:03)
[2021-12-17] MEDS ORDERED: diphenhydrAMINE 25 MG CAP PO PRN (06:54)
[2021-12-17] MEDS ORDERED: Acetaminophen 325 MG TAB PO PRN (06:54)
[2021-12-17] MEDS ORDERED: Albuterol Sulfate 2.5 mg/3 ml Neb NEB PRN (07:07)
[2021-12-17] MEDS ORDERED: Aspirin 81 mg Enteric Coated Tablet PO SCH (09:00)
[2021-12-17] MEDS ORDERED: Non-Formulary Item 1 EACH (Multivit-Min/Iron/Folic/Lutein [Centrum Silver Women] 1 TABLET PO SCH (09:00)
[2021-12-17] MEDS ORDERED: Ondansetron HCl/PF 4 MG/2 ML Vial IVP PRN (09:03)
[2021-12-17] MEDS ORDERED: Promethazine HCl 25 MG/ML VIAL IVPB PRN (09:03)
[2021-12-17] MEDS: Fentanyl 100 MCG/2 ML VIAL SLOW IVP PRN ×2 (11:36→12:38)
[2021-12-17] MEDS: Sodium Chloride 0.9% 1,000 ML IV SCH ×3 (11:39→17:50)
[2021-12-17] MEDS: Aspirin 81 mg Enteric Coated Tablet PO SCH ×2 (11:41→20:38)
[2021-12-17] MEDS: Fluticasone Propionate Nasal Spray 16 gm Bottle NASAL SCH ×2 (11:41→20:40)
[2021-12-17] MEDS: Lisinopril 20 MG TAB PO SCH ×2 (11:42→20:39)
[2021-12-17] MEDS: Folic Acid 1 MG TAB PO SCH (11:42)
[2021-12-17] MEDS: Montelukast Sodium 10 mg Tablet PO SCH (11:52)
[2021-12-17] MEDS: HYDROcodone/Acetaminophen 10/325 mg Tablet PO PRN ×2 (12:27→20:36)
[2021-12-17] MEDS: Ketorolac Tromethamine 30 MG/ML VIAL IVP SCH ×2 (13:20→22:14)
[2021-12-17] MEDS ORDERED: ceFAZolin 2 GM/Dextrose 50 ML 2 GM in Premix Bag 1 BAG IVPB SCH (15:00)
[2021-12-17] MEDS: Allopurinol 100 MG TAB PO SCH (20:37)
[2021-12-17] MEDS: Gabapentin 300 MG CAP PO SCH (20:37)
[2021-12-17] MEDS ORDERED: ceFAZolin Sodium/D5W 2 GM in Premix Bag 1 BAG IVPB SCH (23:00)
[2021-12-18] MEDS: Sodium Chloride 0.9% 1,000 ML IV SCH ×2 (04:19→15:48)
[2021-12-18] MEDS: Ketorolac Tromethamine 30 MG/ML VIAL IVP SCH ×3 (05:58→20:41)
[2021-12-18] MEDS: Levothyroxine Sodium 100 MCG TAB PO SCH (05:59)
[2021-12-18 06:24] LABS: Hemoglobin 8.5 g/dL (12.0-16.0); Mean Corpuscular HGB CONC 30.9 g/dL (32.0-36.0); Mean Corpuscular Hemoglobin 29.5 pg (27.0-31.0); Mean Corpuscular Volume 95.7 fL (78.0-98.0); Mean Platelet Volume 6.8 fL (7.4-10.4); Platelet Count 224 thou/uL (130-400); RBC Distribution Width 16.3 % (11.5-14.5); Red Blood Cell (RBC) Count 2.87 mill/uL (4.20-5.40); White Blood Cell (WBC) Count 5.8 thou/uL (4.8-10.8)
[2021-12-18] MEDS: Ondansetron PF 4 MG/2 ML Vial IVP PRN (09:00)
[2021-12-18] MEDS: Ferrous Gluconate 324 MG TAB PO SCH ×2 (10:19→20:38)
[2021-12-18] MEDS: Aspirin 81 mg Enteric Coated Tablet PO SCH ×2 (10:19→20:37)
[2021-12-18] MEDS: Senokot S 8.6-50 MG TAB PO SCH ×2 (10:19→20:41)
[2021-12-18] MEDS: Folic Acid 1 MG TAB PO SCH (10:20)
[2021-12-18] MEDS: Montelukast Sodium 10 mg Tablet PO SCH (10:20)
[2021-12-18] MEDS: Multivitamin W/ Minerals 1 TAB PO SCH (10:20)
[2021-12-18] MEDS: Lisinopril 20 MG TAB PO SCH ×2 (10:21→20:40)
[2021-12-18] MEDS: Fluticasone Propionate Nasal Spray 16 gm Bottle NASAL SCH ×2 (10:21→20:38)
[2021-12-18] MEDS: HYDROcodone/Acetaminophen 10/325 mg Tablet PO PRN ×2 (14:09→20:44)
[2021-12-18] MEDS: INULIN PO SCH (15:54)
[2021-12-18] MEDS: CHROMIUM PICOLINATE PO SCH (15:54)
[2021-12-18] MEDS: Allopurinol 100 MG TAB PO SCH (20:36)
[2021-12-18] MEDS: Gabapentin 300 MG CAP PO SCH (20:38)
[2021-12-19] MEDS: Sodium Chloride 0.9% 1,000 ML IV SCH ×2 (01:25→10:36)
[2021-12-19] MEDS: Levothyroxine Sodium 100 MCG TAB PO SCH (05:51)
[2021-12-19] MEDS: Ketorolac Tromethamine 30 MG/ML VIAL IVP SCH ×2 (05:51→14:49)
[2021-12-19 06:05] LABS: Hemoglobin 9.2 g/dL (12.0-16.0); Mean Corpuscular HGB CONC 30.6 g/dL (32.0-36.0); Mean Corpuscular Hemoglobin 29.5 pg (27.0-31.0); Mean Corpuscular Volume 96.6 fL (78.0-98.0); Mean Platelet Volume 6.5 fL (7.4-10.4); Platelet Count 239 thou/uL (130-400); RBC Distribution Width 16.2 % (11.5-14.5); Red Blood Cell (RBC) Count 3.12 mill/uL (4.20-5.40); White Blood Cell (WBC) Count 9.8 thou/uL (4.8-10.8)
[2021-12-19] MEDS: Multivitamin W/ Minerals 1 TAB PO SCH (08:49)
[2021-12-19] MEDS: Aspirin 81 mg Enteric Coated Tablet PO SCH ×2 (08:49→20:57)
[2021-12-19] MEDS: Ferrous Gluconate 324 MG TAB PO SCH ×2 (08:49→20:58)
[2021-12-19] MEDS: Lisinopril 20 MG TAB PO SCH ×2 (08:49→21:02)
[2021-12-19] MEDS: Montelukast Sodium 10 mg Tablet PO SCH (08:49)
[2021-12-19] MEDS: Folic Acid 1 MG TAB PO SCH (08:50)
[2021-12-19] MEDS ORDERED: Sodium Chloride 0.9% 250 ML IV SCH (10:30)
[2021-12-19] MEDS: Fluticasone Propionate Nasal Spray 16 gm Bottle NASAL SCH ×2 (10:36→20:59)
[2021-12-19] MEDS: Senokot S 8.6-50 MG TAB PO SCH ×2 (10:36→21:02)
[2021-12-19] MEDS: Allopurinol 100 MG TAB PO SCH (20:56)
[2021-12-19] MEDS: Gabapentin 300 MG CAP PO SCH (20:59)
[2021-12-19] MEDS: HYDROcodone/Acetaminophen 10/325 mg Tablet PO PRN (23:21)
[2021-12-19] MEDS: Ondansetron PF 4 MG/2 ML Vial IVP PRN (23:25)
[2021-12-20] MEDS: Sodium Chloride 0.9% 1,000 ML IV SCH ×4 (03:12→18:20)
[2021-12-20] MEDS: HYDROcodone/Acetaminophen 10/325 mg Tablet PO PRN ×4 (03:36→17:12)
[2021-12-20] MEDS: Levothyroxine Sodium 100 MCG TAB PO SCH (05:55)
[2021-12-20] MEDS: Aspirin 81 mg Enteric Coated Tablet PO SCH ×2 (08:20→20:09)
[2021-12-20] MEDS: Lisinopril 20 MG TAB PO SCH ×2 (08:20→20:12)
[2021-12-20] MEDS: Multivitamin W/ Minerals 1 TAB PO SCH (08:20)
[2021-12-20] MEDS: Montelukast Sodium 10 mg Tablet PO SCH (08:20)
[2021-12-20] MEDS: Folic Acid 1 MG TAB PO SCH (08:20)
[2021-12-20] MEDS: Ferrous Gluconate 324 MG TAB PO SCH ×2 (08:20→20:10)
[2021-12-20] MEDS: Senokot S 8.6-50 MG TAB PO SCH ×2 (08:21→21:29)
[2021-12-20] MEDS: Fluticasone Propionate Nasal Spray 16 gm Bottle NASAL SCH ×2 (08:21→20:11)
[2021-12-20] MEDS ORDERED: Ketorolac Tromethamine 30 MG/ML VIAL IVP PRN (18:20)
[2021-12-20] MEDS ORDERED: Methyl Salicylate/Menthol 85 GM TUBE TOP PRN (18:24)
[2021-12-20] MEDS: Allopurinol 100 MG TAB PO SCH (20:08)
[2021-12-20] MEDS: Gabapentin 300 MG CAP PO SCH (20:11)
[2021-12-21] MEDS: HYDROcodone/Acetaminophen 10/325 mg Tablet PO PRN ×3 (00:45→15:15)
[2021-12-21] MEDS: Sodium Chloride 0.9% 1,000 ML IV SCH ×2 (02:20→09:21)
[2021-12-21] MEDS: Levothyroxine Sodium 100 MCG TAB PO SCH (06:23)
[2021-12-21 07:50] LABS: #Eosinphils 0.5 thou/uL (0.0-0.7); #Lymphocytes 2.2 thou/uL (1.20-3.40); #Neutrophils 6.2 thou/uL (1.40-6.50); %Basophils 0.3 % (0.0-1.0); %Eosinophils 5.3 % (0.0-10.0); %Lymphocytes 21.9 % (21.0-51.0); %Monocytes 10.2 % (0.0-10.0); %Neutrophils 62.3 % (42.0-75.0); Hemoglobin 9.1 g/dL (12.0-16.0); Mean Corpuscular HGB CONC 31.8 g/dL (32.0-36.0); Mean Corpuscular Volume 97.4 fL (78.0-98.0); Mean Platelet Volume 6.4 fL (7.4-10.4); Platelet Count 304 thou/uL (130-400); RBC Distribution Width 16.3 % (11.5-14.5); Red Blood Cell (RBC) Count 2.94 mill/uL (4.20-5.40); White Blood Cell (WBC) Count 9.9 thou/uL (4.8-10.8)
[2021-12-21] MEDS: Fluticasone Propionate Nasal Spray 16 gm Bottle NASAL SCH (08:56)
[2021-12-21] MEDS: Montelukast Sodium 10 mg Tablet PO SCH (08:56)
[2021-12-21] MEDS: Lisinopril 20 MG TAB PO SCH (08:56)
[2021-12-21] MEDS: Senokot S 8.6-50 MG TAB PO SCH (08:56)
[2021-12-21] MEDS: Aspirin 81 mg Enteric Coated Tablet PO SCH (08:56)
[2021-12-21] MEDS: Ferrous Gluconate 324 MG TAB PO SCH (08:56)
[2021-12-21] MEDS: Folic Acid 1 MG TAB PO SCH (08:56)
[2021-12-21] MEDS: Multivitamin W/ Minerals 1 TAB PO SCH (08:56)
[2021-12-21 11:41] VITALS: BP 93/62; TEMP 98.3
== END 2021-12-21 17:10 | DRG 470 ==
LOC: SDC 05:38 → SJJU 06:54
PROVIDERS: ADMIT Orthopaedic Surgery; ATTEND Orthopaedic Surgery
PROC: 0SR9039 Replacement of Right Hip Joint with Ceramic Synthetic Substitute, Cemented, Open Approach (ICD-10-PCS; principal; 2021-12-17)
PROC: 3E0T3BZ Introduction of Anesthetic Agent into Peripheral Nerves and Plexi, Percutaneous Approach (ICD-10-PCS; 2021-12-17)
DX: M16.11 Unilateral primary osteoarthritis, right hip (principal); D62 Acute posthemorrhagic anemia; Z96.652 Presence of left artificial knee joint; K21.9 Gastro-esophageal reflux disease without esophagitis; I10 Essential (primary) hypertension; J45.909 Unspecified asthma, uncomplicated; M10.9 Gout, unspecified; E05.00 Thyrotoxicosis with diffuse goiter without thyrotoxic crisis or storm; Z88.8 Allergy status to other drugs, medicaments and biological substances; Z88.1 Allergy status to other antibiotic agents; Z91.030 Bee allergy status; Z91.041 Radiographic dye allergy status; Z91.040 Latex allergy status; Z90.49 Acquired absence of other specified parts of digestive tract; Z79.899 Other long term (current) drug therapy; Z79.82 Long term (current) use of aspirin; Z79.1 Long term (current) use of non-steroidal anti-inflammatories (NSAID); Z98.1 Arthrodesis status; Z85.3 Personal history of malignant neoplasm of breast; Z82.49 Family history of ischemic heart disease and other diseases of the circulatory system; Z82.3 Family history of stroke; Z01.818 Encounter for other preprocedural examination; Z20.822 Contact with and (suspected) exposure to COVID-19
CPT/HCPCS: 36415; 80048; 85025; 85027; 85610; 87081; 93005; C1776; J0690; J1885; J2001; J2250; J2370; J2405; J2704; J3010; J3370; J3490; J7030; J7050; S0020; U0003; U0005